=== PATIENT | female | born 1970 | race Caucasian/White ===

== ENCOUNTER 2017-05-02 10:00 | Day surgery (SDC) | payer BC ==
[~2017-05-02] VITALS: Ht 165.1 cm; Wt 68.0 kg
[2017-05-02] VITALS (13 sets, daily range): BP systolic 108–140; BP diastolic 54–100; PULSE 56–68; RESP 13–22; Ht 165.1 cm; Wt 68.0 kg
[~2017-05-02 10:00] MED LIST: ACETAMINOPHEN 1000 MG/100 ML IVPB ONE; CLINDAMYCIN 600 MG/D5W (PMX) 50 ML IVPB SCH; SOD CHLORIDE 0.9% 1,000 ML IV SCH
[2017-05-02] MEDS ORDERED: THY90 PO (11:32)
[2017-05-02] MEDS ORDERED: BUPR-75 PO (11:33)
[2017-05-02] MEDS ORDERED: MIDAZOLAM 1 MG/ML 2 ML INJ ONE (13:00)
[2017-05-02] MEDS ORDERED: PROPOFOL 20 ML ONE (13:00)
[2017-05-02] MEDS ORDERED: LIDOCAINE 1% (MDV) 20 ML INJ ONE (13:00)
[2017-05-02] MEDS ORDERED: BUPIVACAINE 0.25% (MPF) 30 ML INJ INJ ONE (13:00)
[2017-05-02] MEDS ORDERED: FENTAnyl 50 MCG/ML VIAL ONE (13:00)
[2017-05-02] MEDS ORDERED: ROCURONIUM 50 MG INJ ONE (13:00)
[2017-05-02] MEDS ORDERED: BUPIVACAINE 0.25% (MPF) 30 ML INJ ONE (13:01)
[2017-05-02] MEDS ORDERED: ROPIVACAINE 0.5 % 30 ML VIAL ONE (13:04)
[2017-05-02] MEDS ORDERED: CLINDAMYCIN 900 MG/D5W (PMX) 50 ML IVPB ONE (13:30)
[2017-05-02] MEDS ORDERED: ONDANSETRON 4 MG INJ ONE (13:48)
[2017-05-02] MEDS ORDERED: FAMOTIDINE 20 MG INJ ONE (13:48)
[2017-05-02] MEDS ORDERED: DEXAMETHASONE 4 MG/ML 1 ML INJ ONE (13:48)
[2017-05-02] MEDS ORDERED: KETOROLAC 30 MG INJ ONE (13:56)
[2017-05-02] MEDS ORDERED: SUGAMMADEX SODIUM 200 MG/2 ML VIAL IV ONE (13:56)
--- NOTE | 2017-05-02 14:06 | OPR ---
Date/Time of Note Date/Time of Note DATE: 05/02/17 TIME: 14:04 Operative Report Procedure Date: May 02, 2017 Preoperative Diagnosis symptomatic gallstones Postoperative Diagnosis same Operation Performed 1. laparoscopic cholecystectomy 2. therapeutic injection of subcutaneous marcaine Surgeon: Shar GOLDBERG Specimens gallbladder Indications This is a 47-year-old female with symptomatic gallstones. She requests surgical excision of her gallbladder. Risks alternatives benefits and percent were discussed with patient. Patient expresses understanding and consents to the operation. Procedure Description Patient is taken to the OR and prepped and draped in usual sterile fashion. Surgical timeout is performed IV antibiotics given. Infraumbilical incision is made with a 10 blade. Dissection cautery was carried onto the fascia which is divided with curved Bellamy scissors. 0 Vicryl U stitch is placed into the fascia. Balloon Walker trocar was introduced. Pneumoperitoneum was established. Midepigastric 12 mm optical trocar right upper quadrant right upper flank 5 mm optical trocar was placed under direct visualization. Upon initial inspection there is adhesions to the gallbladder. Lateral dissection is initiated. Gallbladder is held in retracted in the lateral and outward fashion. The cystic duct is identified a critical view was established the cystic duct is divided with 3 clips proximal and the distal side is divided with 35 mm echelon vascular stapler due to the thickening of the tissues. The cystic artery is divided with 3 clips proximal 1 clip distal. Gallbladder is taken of the gallbladder bed there is good hemostasis gallbladder is retrieved using an Endo Catch bag. Ports removed under direct visualization 0 Vicryl U stitch was tied down skin is closed using skin yaquelin. Therapeutic subcutaneous Marcaine is injected into all incision sites. Dry dressings were applied. Shar GOLDBERG May 02, 2017 14:06
[2017-05-02] MEDS ORDERED: HYDROmorphONE (0.2 MG/ML) 10ML SYG IV ONE (14:13)
[2017-05-02] MEDS: HYDROmorphONE (0.2 MG/ML) 10ML SYG IV PRN ×2 (14:26→14:32)
[2017-05-02] MEDS ORDERED: MEPERIDINE 25 MG INJ IV PRN (14:30)
[2017-05-02] MEDS ORDERED: HYDROmorphONE (0.2 MG/ML) 10ML SYG IV PRN (14:30)
[2017-05-02] MEDS ORDERED: ONDANSETRON 4 MG INJ IV PRN (14:30)
[2017-05-02] MEDS ORDERED: PROCHLORPERAZINE 10 MG INJ IV PRN (14:30)
[2017-05-02] MEDS ORDERED: DIPHENHYDRAMINE 50 MG INJ IV PRN (14:30)
[2017-05-02] MEDS ORDERED: HYDROCODONE/APAP (5/325) TAB PO ONE (14:30)
== END 2017-05-02 15:40 | disposition home or self-care (01) ==
LOC: SDS 10:00
PROVIDERS: ATTEND Surgery
DX: K80.20 Calculus of gallbladder without cholecystitis without obstruction (principal); K81.1 Chronic cholecystitis; E03.9 Hypothyroidism, unspecified
CPT/HCPCS: 47562; 84703; 88304; J0131; J1100; J1170; J1885; J2250; J2405; J2795; J3010

== ENCOUNTER 2017-05-08 15:39 | Emergency (ER) | payer BC ==
[~2017-05-08] VITALS: Ht 160 cm; Wt 79.0 kg
[~2017-05-08 15:39] MED LIST changes: -ACETAMINOPHEN 1000 MG/100 ML IVPB ONE; +BUPR-75 PO; -CLINDAMYCIN 600 MG/D5W (PMX) 50 ML IVPB SCH; -SOD CHLORIDE 0.9% 1,000 ML IV SCH; +THY90 PO
[2017-05-08 15:41] VITALS: Ht 160 cm; Wt 79.0 kg
[2017-05-08] MEDS ORDERED: SOD CHLORIDE 0.9% 1,000 ML IV STA (16:39)
[2017-05-08] MEDS ORDERED: ONDANSETRON 4 MG INJ IV STA (16:39)
[2017-05-08] MEDS ORDERED: HYDROmorphONE 1 MG/ML SYG IV STA (16:39)
[2017-05-08 17:19] LABS: BASOPHILS % 0.3 % (0.0-2.0); EOSINOPHILS # 0.1 10^3/ul (0.0-0.5); EOSINOPHILS % 0.9 % (0.0-7.0); HEMATOCRIT 40.1 % (37.0-47.0); HEMOGLOBIN 13.7 g/dl (12.0-16.0); LYMPHOCYTES # 1.4 10^3/ul (0.8-2.9); LYMPHOCYTES % 12.2 % (15.0-51.0); MEAN CORPUSCULAR HEMOGLOBIN 32.3 pg (29.0-33.0); MEAN CORPUSCULAR HGB CONC 34.2 g/dl (32.0-37.0); MEAN CORPUSCULAR VOLUME 94.6 fl (82.0-101.0); MEAN PLATELET VOLUME 9.9 fl (7.4-10.4); MONOCYTE # 0.8 10^3/ul (0.3-0.9); MONOCYTES % 6.6 % (0.0-11.0); NEUTROPHILS % 79.2 % (39.0-77.0); PLATELET COUNT 270 10^3/UL (140-415); RED BLOOD COUNT 4.24 10^6/ul (4.20-5.40); RED CELL DISTRIBUTION WIDTH 12.8 % (11.5-14.5); WHITE BLOOD COUNT 11.3 10^3/ul (4.8-10.8)
[2017-05-08 17:37] LABS: ALBUMIN 4.8 g/dl (3.3-4.9); ALBUMIN/GLOBULIN RATIO 1.45; BILIRUBIN,INDIRECT 0.4 mg/dl (0-1.1); BILIRUBIN,TOTAL 0.4 mg/dl (0.2-1.3); CALCIUM 9.6 mg/dl (8.4-10.2); CREATININE 0.76 mg/dl (0.44-1.00); TOTAL PROTEIN 8.1 g/dl (6.1-8.1)
--- NOTE | 2017-05-08 18:19 | RADRPT ---
PROCEDURE: CT ABDOMEN AND PELVIS WITHOUT CONTRAST: CLINICAL INDICATION: 47 years of age, female, status post cholecystectomy. Abdominal pain and gr een emesis. COMPARISON: None TECHNIQUE: CT of the abdomen, and pelvis was performed without intravenous contrast. Oral contrast w as not administered prior to the examination. Coronal and sagittal reformatted images were obtained from the axial source images. Images were revi ewed on a high-resolution PACS workstation. Dose information: Based on a 32 cm phantom, the estimated radiation dose (CTDI vol mGy) for each ser ies in this exam is 10.15 . The estimated cumulative dose (DLP mGy-cm) is 512 . FINDINGS: In the absence of intravenous contrast, the study constitutes a limited assessment of the solid orga ns and vessels. LUNG BASES: Linear atelectasis bilateral lung bases ABDOMEN/PELVIS: Liver: Trace perihepatic fluid. Otherwise normal. Gallbladder: Surgical clips gallbladder fossa from cholecystectomy. There is mild hazy soft tissue edema in the surgical bed without a discrete fluid collection. Negative for a hematoma. Bile ducts: No intrahepatic or extrahepatic biliary duct dilatation. Spleen: Normal. Pancreas: Normal. Adrenal glands: Normal. Kidneys and ureters: Normal. Aorta and IVC: Normal noncontrast appearance. Lymph nodes: Normal. Gastrointestinal tract: Normal. Bowel loops of decompressed. Appendix: Not identified. Negative for inflammatory changes in the right lower quadrant in the gordon on of the appendix. Bladder: Normal. Pelvic Organs: Uterus and ovaries are unremarkable. Peritoneal cavity: No free fluid or free intraperitoneal air. Abdominal wall: Surgical yaquelin and soft tissue changes abdominal wall at umbilicus and superior mi dline from recent laparoscopy. BONES: Musculoskeletal: No suspicious bone lesions. IMPRESSION: Status post cholecystectomy with the expected recent postsurgical changes including trace perihepati c fluid and edema in the surgical bed. Bowel loops of decompressed. Negative for evidence of bowel obstruction. Appendix is not identified. Negative for inflammatory changes in the right lower quadrant in the re gion of the appendix. RPTAT: HCTS Physician Dona Date Time Electronically viewed and signed by Physician Dona on 05/08/2017 18:18 CS/
[2017-05-08] MEDS ORDERED: DICY10CA60 PO (19:44)
[2017-05-08] MEDS ORDERED: ONDA4TAB14 PO (19:44)
--- NOTE | 2017-05-08 19:52 | ERD ---
ER Documentation Chief Complaint Date/Time DATE: 05/08/17 TIME: 19:46 Chief Complaint RUQ PAIN HPI This 47-year-old female who had her gallbladder taken out [address] Packer. The patient says she has been doing well just feeling a little bit bloated from the gas that was inside her abdominal cavity. She says about an hour prior to arrival she had a sudden sharp pain in her right upper quadrant with nausea vomiting 1. There is no blood in it but it did look a little green. She has no pain in her back chest shoulders but does have some mild right upper quadrant pain is getting better. She says it feels exactly like it did when she had her gallstones. No diarrhea fever chest pain cough ROS All systems reviewed and are negative except as per history of present illness. Medications Home Meds Active Scripts Dicyclomine Hcl* (Bentyl*) 10 Mg Capsule, 20 MG PO QID, #60 CAP Prov:CECI CORTEZSTOLOS A. DO 05/08/17 Ondansetron (Ondansetron Odt) 4 Mg Tab.rapdis, 4 MG PO Q6H Y for NAUSEA AND/OR VOMITING, #10 TAB Prov:LEJESSICAOS,APOSTOLOS A. DO 05/08/17 Reported Medications Bupropion Hcl* (Wellbutrin XL*) 150 Mg Tab.sr.24h, 350 MG PO DAILY, TAB.SA 05/02/17 Thyroid* ([place] Thyroid*) 90 Mg Tablet, 90 MG PO DAILY, TAB 05/02/17 Allergies Allergies: Coded Allergies: Penicillins (Unverified Allergy, Unknown, 05/08/17) PMhx/Soc History of Surgery: No Anesthesia Reaction: No (family history of n/v with anesthesia) Hx Neurological Disorder: No Hx Respiratory Disorders: No Hx Cardiac Disorders: No Hx Psychiatric Problems: Yes (depression) Hx Miscellaneous Medical Probl: No Hx Alcohol Use: Yes (social) Hx Substance Use: No Hx Tobacco Use: No Smoking Status: Never smoker FmHx Family History: No coronary disease Physical Exam Vitals Vital Signs Date Time Temp Pulse Resp B/P Pulse Ox O2 Delivery O2 Flow Rate FiO2 05/08/17 15:41 98.7 78 18 114/59 99 Physical Exam Const: Well-developed, well-nourished Head: Atraumatic, normocephalic Eyes: Normal Conjunctiva, PERRLA, EOMI, normal sclera, no nystagmus ENT: Normal External Ears, Nose and Mouth, moist mucus membranes. Neck: Full range of motion. No meningismus, no lymphadenopathy. Resp: Clear to auscultation bilaterally, no wheezing, rhonchi, rales Cardio: Regular rate and rhythm, no murmurs, S1 S2 present Abd: Soft, mild right upper quadrant tenderness, non distended. Normal bowel sounds, no guarding or rebound, no pulsitile abdominal masses or bruits Skin: No petechiae or rashes, no ecchymosis , no maculopapular rash Back: No midline or flank tenderness Ext: No cyanosis, or edema, FROM x 4, normal inspection, neurovascularly intact x 4 Neur: Awake and alert, STR 5/5 x 4, sensation intact x 4, no focal findings, cerebellum intact Psych: Normal Mood and Affect Result Diagram: 05/08/17 1705 05/08/17 1705 Results 24 hrs Laboratory Tests Test 05/08/17 17:05 White Blood Count 11.310^3/ul Red Blood Count 4.2410^6/ul Hemoglobin 13.7g/dl Hematocrit 40.1% Mean Corpuscular Volume 94.6fl Mean Corpuscular Hemoglobin 32.3pg Mean Corpuscular Hemoglobin Concent 34.2g/dl Red Cell Distribution Width 12.8% Platelet Count 47779^3/UL Mean Platelet Volume 9.9fl Neutrophils % 79.2% Lymphocytes % 12.2% Monocytes % 6.6% Eosinophils % 0.9% Basophils % 0.3% Nucleated Red Blood Cells % 0.0/100WBC Neutrophils # 9.010^3/ul Lymphocytes # 1.410^3/ul Monocytes # 0.810^3/ul Eosinophils # 0.110^3/ul Basophils # 0.010^3/ul Nucleated Red Blood Cells # 0.010^3/ul Sodium Level 143mmol/L Potassium Level 4.0mmol/L Chloride Level 101mmol/L Carbon Dioxide Level 26mmol/L Anion Gap 20 Blood Urea Nitrogen 14mg/dl Creatinine 0.76mg/dl Glucose Level 103mg/dl Calcium Level 9.6mg/dl Total Bilirubin 0.4mg/dl Direct Bilirubin 0.00mg/dl Indirect Bilirubin 0.4mg/dl Aspartate Amino Transf (AST/SGOT) 856IU/L Alanine Aminotransferase (ALT/SGPT) 405IU/L Alkaline Phosphatase 296IU/L Total Protein 8.1g/dl Albumin 4.8g/dl Globulin 3.30g/dl Albumin/Globulin Ratio 1.45 Lipase 77U/L Serum HCG, Qualitative NEGATIVE Current Medications Medications (Trade) Dose Ordered Sig/Malorie Route PRN Reason Start Time Stop Time Status Last Admin Dose Admin Sodium Chloride (NS) 1,000 ml @ 1,000 mls/hr Q1H STAT IV 05/08/17 16:39 05/08/17 17:38 DC 05/08/17 18:31 Hydromorphone HCl (Dilaudid) 1 mg ONCE STAT IV 05/08/17 16:39 05/08/17 16:41 DC Ondansetron HCl (Zofran Inj) 4 mg ONCE STAT IV 05/08/17 16:39 05/08/17 16:41 DC 05/08/17 18:31 Procedures/MDM PROCEDURE: CT ABDOMEN AND PELVIS WITHOUT CONTRAST: CLINICAL INDICATION: 47 years of age, female, status post cholecystectomy. Abdominal pain and green emesis. COMPARISON: None TECHNIQUE: CT of the abdomen, and pelvis was performed without intravenous contrast. Oral contrast was not administered prior to the examination. Coronal and sagittal reformatted images were obtained from the axial source images. Images were reviewed on a high-resolution PACS workstation. Dose information: Based on a 32 cm phantom, the estimated radiation dose (CTDI vol mGy) for each series in this exam is 10.15 . The estimated cumulative dose (DLP mGy-cm) is 512 . FINDINGS: In the absence of intravenous contrast, the study constitutes a limited assessment of the solid organs and vessels. LUNG BASES: Linear atelectasis bilateral lung bases ABDOMEN/PELVIS: Liver: Trace perihepatic fluid. Otherwise normal. Gallbladder: Surgical clips gallbladder fossa from cholecystectomy. There is mild hazy soft tissue edema in the surgical bed without a discrete fluid collection. Negative for a hematoma. Bile ducts: No intrahepatic or extrahepatic biliary duct dilatation. Spleen: Normal. Pancreas: Normal. Adrenal glands: Normal. Kidneys and ureters: Normal. Aorta and IVC: Normal noncontrast appearance. Lymph nodes: Normal. Gastrointestinal tract: Normal. Bowel loops of decompressed. Appendix: Not identified. Negative for inflammatory changes in the right lower quadrant in the region of the appendix. Bladder: Normal. Pelvic Organs: Uterus and ovaries are unremarkable. Peritoneal cavity: No free fluid or free intraperitoneal air. Abdominal wall: Surgical yaquelin and soft tissue changes abdominal wall at umbilicus and superior midline from recent laparoscopy. BONES: Musculoskeletal: No suspicious bone lesions. IMPRESSION: Status post cholecystectomy with the expected recent postsurgical changes including trace perihepatic fluid and edema in the surgical bed. Bowel loops of decompressed. Negative for evidence of bowel obstruction. Appendix is not identified. Negative for inflammatory changes in the right lower quadrant in the region of the appendix. RPTAT: HCTS Physician Dona Date Time Electronically viewed and signed by Physician Dona on 05/08/2017 18: 18 CS/ CC: LAURA CORTEZ DO Spoke with Dr. Packer.. Was inquiring about getting MRCP have recalled MRI and they are booked out to 1130. We will follow-up with him and/or return to the ER tomorrow for MRCP if her pain gets worse or LFTs get more elevated. Departure Diagnosis: Primary Impression: Abdominal pain Abdominal location: right upper quadrant Qualified Code: R10.11 - Right upper quadrant abdominal pain Additional Impression: Elevated liver function tests Condition: Stable Patient Instructions: Abdominal Pain Referrals: HARISH BRAR MD (PCP) LAURA CORTEZ DO May 08, 2017 19:52
[2017-05-08 20:04] VITALS: BP 138/68; PULSE 69; RESP 20; TEMP 97.7
== END 2017-05-08 19:45 | disposition home or self-care (01) ==
LOC: FTE 15:39
DX: R10.11 Right upper quadrant pain (principal); R94.5 Abnormal results of liver function studies; R11.2 Nausea with vomiting, unspecified
CPT/HCPCS: 74176; 80053; 83690; 84703; 85025; J2405; J7030; 36415; 96374; J1170